=== PATIENT | male | born 1995 | race African-American/Black ===

== ENCOUNTER 2018-04-15 19:41 | Observation (INO) | payer OTHER ==
[~2018-04-15 19:41] MED LIST: SUCCINYLCHOLINE CHLORIDE INJ 200 MG/10 ML VIAL ONE
--- NOTE | 2018-04-15 20:06 | ER Document Report ---
ED General - General Stated Complaint: INGESTION OF FORIEGN OBJECT Time Seen by Provider: 04/15/18 19:45 Mode of Arrival: Medic Information source: Patient, Law Enforcement Notes: 22-year-old male who is in police custody presents by police concern of ingestion of bag of heroin. Patient himself initially denies the bag, he notes he feels well. Please did note that he was found to have ingested large bag of heroin. TRAVEL OUTSIDE OF THE [place] IN LAST 30 DAYS: No - HPI Onset: Just prior to arrival Onset/Duration: Sudden Quality of pain: No pain Severity: Mild Pain Level: Denies Associated symptoms: None Exacerbated by: Denies Relieved by: Denies Similar symptoms previously: No Recently seen / treated by doctor: No - Related Data Allergies/Adverse Reactions: No Known Allergies Allergy (Verified 04/15/18 20:29) Past Medical History - Social History Smoking Status: Current Every Day Smoker Cigarette use (# per day): Yes Chew tobacco use (# tins/day): No Smoking Education Provided: No Frequency of alcohol use: Occasional Family History: Reviewed & Not Pertinent, CVA, DM Psychiatric Medical History: Reports: Hx Attention Deficit Hyperactivity Disorder - Immunizations Immunizations up to date: Yes Hx Diphtheria, Pertussis, Tetanus Vaccination: Yes - 2013 Review of Systems - Review of Systems Notes: REVIEW OF SYSTEMS: CONSTITUTIONAL : Denies fever, chills, or sweats. Denies recent illness. EENT: Denies eye, ear, throat, or mouth pain or symptoms. Denies nasal or sinus congestion or discharge. Denies throat, tongue, or mouth swelling or difficulty swallowing. CARDIOVASCULAR: Denies chest pain. Denies palpitations or racing or irregular heart beat. Denies ankle edema. RESPIRATORY: Denies cough, cold, or chest congestion. Denies shortness of breath, difficulty breathing, or wheezing. GASTROINTESTINAL: Denies abdominal pain or distention. Denies nausea, vomiting , or diarrhea. Denies blood in vomitus, stools, or per rectum. Denies black, tarry stools. Denies constipation. GENITOURINARY: Denies difficulty urinating, painful urination, burning, frequency, blood in urine, or discharge. MUSCULOSKELETAL: Denies back or neck pain or stiffness. Denies joint pain or swelling. SKIN: Denies rash, lesions or sores. HEMATOLOGIC : Denies easy bruising or bleeding. LYMPHATIC: Denies swollen, enlarged glands. NEUROLOGICAL: Denies confusion or altered mental status. Denies passing out or loss of consciousness. Denies dizziness or lightheadedness. Denies headache. Denies weakness or paralysis or loss of use of either side. Denies problems with gait or speech. Denies sensory loss, numbness, or tingling. Denies seizures. PSYCHIATRIC: Denies anxiety or stress. Denies depression, suicidal ideation, or homicidal ideation. ALL OTHER SYSTEMS REVIEWED AND NEGATIVE. Dictation was performed using [employer] voice recognition software PHYSICAL EXAMINATION: GENERAL: Well-appearing, well-nourished and in no acute distress. HEAD: Atraumatic, normocephalic. EYES: Pupils equal round and reactive to light, extraocular movements intact, sclera anicteric, conjunctiva are normal. ENT: Nares patent, oropharynx clear without exudates. Moist mucous membranes. NECK: Normal range of motion, supple without lymphadenopathy LUNGS: Breath sounds clear to auscultation bilaterally and equal. No wheezes rales or rhonchi. HEART: Regular rate and rhythm without murmurs ABDOMEN: Soft, nontender, nondistended abdomen. No guarding, no rebound. No masses appreciated. Musculoskeletal: Normal range of motion, no pitting or edema. No cyanosis. NEUROLOGICAL: Cranial nerves grossly intact. Normal speech, normal gait. Normal sensory, motor exams PSYCH: Normal mood, normal affect. SKIN: Warm, Dry, normal turgor, no rashes or lesions noted. Physical Exam - Vital signs Vitals: BP 143/88 H 04/15/18 20:02 Course - Re-evaluation Re-evalutation: 04/15/18 20:38 Initially patient refused to admit that he had ingested the bag of heroin, however after performing x-ray and CT for his own safety as a rupture of this bag could lead to sudden I did notice a foreign body in his stomach, when I explained this to the patient he admitted that he did swallow it and he is agreeable to surgical intervention Patient was immediately evaluated by surgeon who will take the patient to have an egd performed in the operating room - Vital Signs Vital signs: Temp Pulse Resp BP Pulse Ox 98 F 85 11 L 137/74 H 98 04/15/18 20:06 04/15/18 20:06 04/15/18 20:33 04/15/18 20:33 04/15/18 20:33 Discharge - Discharge Clinical Impression: heroin ingestion Condition: Stable Disposition: SAME DAY SURGERY Admitting Provider: Surgicalist Unit Admitted: OR
--- NOTE | 2018-04-15 20:12 | RADIOLOGY REPORT (SQ) ---
EXAM DESCRIPTION: KUB/ABDOMEN (SINGLE VIEW) COMPLETED DATE/TIME: 04/15/2018 7:59 pm REASON FOR STUDY: heroin bag ingestion COMPARISON: None. NUMBER OF VIEWS: One view. TECHNIQUE: Supine radiographic image of the abdomen acquired. LIMITATIONS: None. FINDINGS: BOWEL GAS PATTERN: Normal bowel gas pattern. No dilated loops. CALCIFICATIONS: No suspicious calcifications. SOFT TISSUES: No gross mass or suggestion of organomegaly. HARDWARE: None in the abdomen. BONES: No acute fracture. No worrisome bone lesions. OTHER: No other significant finding. IMPRESSION: No evidence of retained foreign body; however, the ingested material may not be radiopaq ue. TECHNICAL DOCUMENTATION: JOB ID: [id number] [employer]- All Rights Reserved Reading location - IP/workstation name: [email or web address]
--- NOTE | 2018-04-15 20:19 | RADIOLOGY REPORT (SQ) ---
EXAM DESCRIPTION: CT ABD/PELVIS NO ORAL OR IV COMPLETED DATE/TIME: 04/15/2018 8:02 pm REASON FOR STUDY: HEROIN BAG INGESTION COMPARISON: None. TECHNIQUE: CT scan of the abdomen and pelvis performed without intravenous or oral contrast. Images reviewed with lung, soft tissue, and bone windows. Reconstructed coronal and sagittal MPR images revi ewed. All images stored on PACS. All CT scanners at this facility use dose modulation, iterative reconstruction, and/or weight based d osing when appropriate to reduce radiation dose to as low as reasonably achievable (ALARA). [facility]: Dose Right [facility]: CareDose [facility]: Dose Right [facility]: Teradose 4D [facility]: [employer] RADIATION DOSE: CT Rad equipment meets quality standard of care and radiation dose reduction techniq ues were employed. CTDIvol: 7.8 mGy. DLP: 419 mGy-cm.mGy. LIMITATIONS: None. FINDINGS: LOWER CHEST: No significant findings. No nodules or infiltrates. NON-CONTRASTED LIVER, SPLEEN, ADRENALS: Evaluation limited by lack of IV contrast. No identified sign ificant masses. PANCREAS: No masses. No peripancreatic inflammatory changes. GALLBLADDER: No identified stones by CT criteria. No inflammatory changes to suggest cholecystitis. RIGHT KIDNEY AND URETER: No suspicious masses. Assessment limited by lack of IV contrast. No signif icant calcifications. No hydronephrosis or hydroureter. LEFT KIDNEY AND URETER: No suspicious masses. Assessment limited by lack of IV contrast. No signifi cant calcifications. No hydronephrosis or hydroureter. AORTA AND RETROPERITONEUM: No aneurysm. No retroperitoneal masses or adenopathy. BOWEL AND PERITONEAL CAVITY: There is an a 2.3 x 1.9 x 2.2 cm structure with an the gastric contents which has the appearance of an ingested foreign body. No obvious masses or inflammatory changes. No free fluid. APPENDIX: Normal. PELVIS, BLADDER, AND ABDOMINAL WALL:No abnormal masses. No free fluid. Bladder normal. BONES: No significant findings. OTHER: No other significant finding. IMPRESSION: Given clinical history, a 2.3 x 1.9 x 2.2 cm structure seen within the gastric contents likely represents the suspected foreign body ingestion. COMMENT: This report was called to MOHSEN MCKINNEY DO at20:10 on 04/15/2018. Quality ID # [id number]: Final reports with documentation of one or more dose reduction techniques (e.g., Au tomated exposure control, adjustment of the mA and/or kV according to patient size, use of iterative reconstruction technique) TECHNICAL DOCUMENTATION: JOB ID: [id number] [employer]- All Rights Reserved Reading location - IP/workstation name: [email or web address]
[2018-04-15] MEDS ORDERED: MIDAZOLAM 2 MG/2 ML INJ ONE (20:26)
[2018-04-15] MEDS ORDERED: FENTANYL CITRATE INJ/PF 100 MCG/2 ML AMPUL ONE (20:26)
[2018-04-15] MEDS ORDERED: PROPOFOL INJ 200 MG/20 ML VIAL IV ONE (20:26)
[2018-04-15] MEDS ORDERED: LIDOCAINE 2% INJ-PF (20 MG/ML) 10 ML AMPUL ONE (20:26)
[2018-04-15] MEDS ORDERED: DEXMEDETOMIDINE INJ 80 MCG/20 ML VIAL IV ONE (20:28)
[2018-04-15] MEDS ORDERED: NALOXONE HCL INJ/PF 0.4 MG/1 ML SDV ONE (20:34)
[2018-04-15 20:43] LABS: ABSOLUTE LYMPHOCYTES (AUTO) 1.1 10^3/uL (0.5-4.7); ABSOLUTE MONOCYTES (AUTO) 0.4 10^3/uL (0.1-1.4); ABSOLUTE NEUT (AUTO) 6.2 10^3/uL (1.7-8.2); BASOPHILS % (AUTO) 0.3 % (0-2); EOSINOPHILS % (AUTO) 0.2 % (0-6); HEMATOCRIT 45.8 % (37.9-51.0); HEMOGLOBIN 15.8 g/dL (13.5-17.0); LYMPHOCYTES % (AUTO) 14.4 % (13-45); MEAN CORPUSCULAR HEMOGLOBIN 32.7 pg (27.0-33.4); MEAN CORPUSCULAR HGB CONC 34.6 g/dL (32.0-36.0); MEAN CORPUSCULAR VOLUME 95 fl (80-97); MONOCYTES % (AUTO) 5.4 % (3-13); PLATELET COUNT 233 10^3/uL (150-450); RED BLOOD COUNT 4.85 10^6/uL (4.35-5.55); RED CELL DISTRIBUTION WIDTH 13.7 % (11.5-14.0); SEGMENTED NEUTROPHILS % (AUTO) 79.7 % (42-78); TOTAL CELLS COUNTED % (AUTO) 100 %; WHITE BLOOD COUNT 7.8 10^3/uL (4.0-10.5)
--- NOTE | 2018-04-15 20:43 | PDOC H&P ---
History of Present Illness Admission Date/PCP: 04/15/18 20:23 Patient complains of: Ingestion of foreign body History of Present Illness: MARIBEL ALVAREZ is a 22 year old male Was brought to the emergency department by [facility]'s office after having ingested a bag of heroin. The history is provided by the [place] [employer] on a video at the snf. The patient was then taken into custody and subsequently brought to the emergency department. The related to Dr. Gutierres who subsequently took an x-ray of the patient's abdomen which was nondiagnostic. A CT of the abdomen was performed without oral or IV contrast which showed findings consistent with foreign body. This was confirmed by the radiologist. When confronted, the patient did not deny swallowing the alleged bag of heroin. he remained cooperative, in handcuffs. Surgery was consulted and arrangements were made for the patient to be taken to the operating room for upper endoscopy, possible exploratory laparotomy for removal of foreign body in the stomach. Past Medical History Medical History: None Psychiatric Medical History: Reports: Attention Deficit Hyperactivity Disorder Past Surgical History Past Surgical History: Reports: None Social History Smoking Status: Current Every Day Smoker Hx Recreational Drug Use: Yes Hx Prescription Drug Abuse: No Family History Family History: None, Reviewed & Not Pertinent, CVA, DM Parental Family History Reviewed: Yes Children Family History Reviewed: Yes Sibling(s) Family History Reviewed.: Yes Medication/Allergy Home Medications: No Home Medications 04/15/18 Allergies/Adverse Reactions: No Known Allergies Allergy (Verified 04/15/18 20:29) Review of Systems Constitutional: ABSENT: chills, fever(s), headache(s), weight gain, weight loss Eyes: ABSENT: visual disturbances Ears: ABSENT: hearing changes Cardiovascular: ABSENT: chest pain, dyspnea on exertion, edema, orthropnea, palpitations Respiratory: ABSENT: cough, hemoptysis Gastrointestinal: ABSENT: abdominal pain, constipation, diarrhea, hematemesis, hematochezia, nausea, vomiting Genitourinary: ABSENT: dysuria, hematuria Musculoskeletal: ABSENT: joint swelling Integumentary: ABSENT: rash, wounds Neurological: ABSENT: abnormal gait, abnormal speech, confusion, dizziness, focal weakness, syncope Psychiatric: ABSENT: anxiety, depression, homidical ideation, suicidal ideation Endocrine: ABSENT: cold intolerance, heat intolerance, polydipsia, polyuria Hematologic/Lymphatic: ABSENT: easy bleeding, easy bruising Physical Exam Vital Signs: Temp Pulse Resp BP Pulse Ox 98 F 85 28 H 142/88 H 98 04/15/18 20:06 04/15/18 20:06 04/15/18 20:20 04/15/18 20:20 04/15/18 20:20 General appearance: PRESENT: mild distress Head exam: PRESENT: normocephalic Eye exam: PRESENT: EOMI Ear exam: PRESENT: normal external ear exam Teeth exam: PRESENT: other - Goal plating Neck exam: PRESENT: full ROM Respiratory exam: PRESENT: clear to auscultation jerry Cardiovascular exam: PRESENT: RRR Pulses: PRESENT: normal carotid pulses, normal radial pulses GI/Abdominal exam: PRESENT: soft Rectal exam: PRESENT: deferred Extremities exam: PRESENT: other - Patient confined due to handcuffs and ankle cuffs Neurological exam: PRESENT: alert, awake, oriented to person, oriented to place , oriented to time, oriented to situation, other - Patient remained cooperative throughout the exam Psychiatric exam: PRESENT: anxious Skin exam: PRESENT: dry Results Impressions: Abdomen/Pelvis CT 04/15/18 00:00 IMPRESSION: Given clinical history, a 2.3 x 1.9 x 2.2 cm structure seen within the gastric contents likely represents the suspected foreign body ingestion. KUB X-Ray 04/15/18 19:47 IMPRESSION: No evidence of retained foreign body; however, the ingested material may not be radiopaque. Assessment & Plan - Diagnosis (1) Ingestion of foreign body Qualifiers: Encounter type: initial encounter Qualified Code(s): T18.9XXA - Foreign body of alimentary tract, part unspecified, initial encounter Is this a current diagnosis for this admission?: Yes Plan: History of present illness, and imaging studies consistent with ingested foreign body consistent with bag of heroin by report. Patient is hemodynamically stable neurologically intact and has been presented with the putative evidence that foreign bodies present in the stomach. Recommendations: 1. Because of the legal, and health implications of this self inflicted behavior, we have recommended the patient undergo upper endoscopy possible laparotomy, gastrotomy for removal of foreign body. This is been explained to the patient. He appears to understand the consequences of not operating which include disability and possibly due to release of heroin, and agrees to proceed with recommended procedure. - Time Time Spent: 50 to 70 Minutes Critical Time spent with patient: 15-24 minutes Medications reviewed and adjusted accordingly: Yes Anticipated discharge: Other - Halfway - Inpatient Certification Based on my medical assessment, after consideration of the patient's comorbidities, presenting symptoms, or acuity I expect that the services needed warrant INPATIENT care.: Yes I certify that my determination is in accordance with my understanding of Medicare's requirements for reasonable and necessary INPATIENT services [42 CFR 412.3e].: Yes Medical Necessity: Need For IV Fluids
[2018-04-15 21:03] LABS: ALANINE AMINOTRANSFERASE 39 U/L (21-72); ALBUMIN 4.8 g/dL (3.5-5.0); ALKALINE PHOSPHATASE 76 U/L (38-126); ANION GAP 15 (5-19); ASPARTATE AMINO TRANSFERASE 33 U/L (17-59); BILIRUBIN,DIRECT 0.3 mg/dL (0.0-0.4); BILIRUBIN,TOTAL 0.6 mg/dL (0.2-1.3); BLOOD UREA NITROGEN 10 mg/dL (7-20); CALCIUM 9.9 mg/dL (8.4-10.2); CARBON DIOXIDE 21 mmol/L (22-30); CHLORIDE 108 mmol/L (98-107); GLUCOSE 109 mg/dL (75-110); POTASSIUM 3.8 mmol/L (3.6-5.0); SODIUM 143.7 mmol/L (137-145); TOTAL PROTEIN 7.8 g/dL (6.3-8.2)
[2018-04-15 21:25] LABS: URINE AMPHETAMINES SCREEN NEGATIVE; URINE BARBITURATES SCREEN NEGATIVE; URINE BENZODIAZEPINES SCREEN NEGATIVE; URINE COCAINE SCREEN NEGATIVE; URINE MARIJUANA (THC) SCREEN UNCONFIRMED POSITIVE; URINE METHADONE SCREEN NEGATIVE; URINE PHENCYCLIDINE SCREEN NEGATIVE
--- NOTE | 2018-04-15 22:20 | Operative Report ---
Operative Report DATE OF SURGERY: 04/15/18 PREOPERATIVE DIAGNOSIS: Ingestion of foreign body consistent with bag of heroin POSTOPERATIVE DIAGNOSIS: Name with gastritis and duodenitis OPERATION: 1. Esophagogastroduodenoscopy. 2. Extraction of bag of heroin away from stomach SURGEON: MARIBEL VERGARA ANESTHESIA: GA TISSUE REMOVED OR ALTERED: None COMPLICATIONS: None ESTIMATED BLOOD LOSS: None INTRAOPERATIVE FINDINGS: See below PROCEDURE: After obtaining informed consent, patient taken the main operating room where general anesthesia was induced by endotracheal intubation he was placed in supine position; instrumentation was set up for upper endoscopy. Surgical plan surgical timeout were conducted. The flexible adult upper endoscope was advanced through the hypopharynx, down the esophagus into the stomach. There was a moderate amount of white undigested food consistent with rice. Photos were taken. Scope was advanced through the pylorus into the duodenum. There is mild to moderate duodenitis. There was some undigested white food substance in the duodenum. Scope was brought back through into the stomach. There is mild gastritis. In the cardia the stomach there was a large collection of white undigested food. Amongst this was the bag of heroin. We placed the patient in the extreme right lateral decubitus position left side up. Using a combination of irrigation and gentle massage with the scope, we are able to free the bag up from the food materials. We now used a Byers net to secure the bag containing the heroin. The scope, Byers net and bag was brought out of the patient using a gentle pull. A mechanical laryngoscope was used to open the hypopharynx, and the scope , Byers net and bag were all brought out intact for the patient's oropharynx. The intact plastic bag with the heroin contents therein was placed in the specimen cup, and given to the appropriate authorities in the operating room. We repeated the upper endoscopy and check for any mechanical bleeding there was none. We also re-scope the patient from stomach down through the first and second portion of the duodenum to ensure there were no other foreign bodies and there were none. Other than some undigested food. Scope was withdrawn. The patient was then extubated and tolerated procedure well taken recovery room with shackles remaining on his feet.
[2018-04-16 08:19] VITALS: BP 114/67
--- NOTE | 2018-04-16 09:20 | PDOC DISCHARGE SUMMARY ---
General - Admit/Disc Date/PCP Admission Date/Primary Care Provider: 04/15/18 20:23 Discharge Date: 04/16/18 - Discharge Diagnosis (1) Ingestion of foreign body Is this a current diagnosis for this admission?: Yes - Additional Information Resuscitation Status: Full Code Discharge Diet: As Tolerated Discharge Activity: Activity As Tolerated Home Medications: No Home Medications 04/15/18 History of Present Illness History of Present Illness: MARIBEL ALVAREZ is a 22 year old male who ingested a foreign body at the nursing home facility. The patient was brought to the hospital for extraction of the ingested foreign body. Hospital Course Hospital Course: The patient was taken to the operating room where EGD with foreign body extraction was performed. The surgery was successful. The patient was taken to the floor in stable condition. On postoperative day #1 the patient was doing well, his vital signs were stable, and he was tolerating a diet. At this time it was felt that the patient had reached maximal hospital benefit and was fit for discharge. Physical Exam Vital Signs: Temp Pulse Resp BP Pulse Ox 98.5 F 76 15 114/67 99 04/16/18 08:00 04/16/18 08:00 04/16/18 08:00 04/16/18 08:00 04/16/18 08:00 Intake & Output 04/15/18 04/16/18 04/17/18 06:59 06:59 06:59 Intake Total 1999 Balance 1999 Results Laboratory Results: 04/15/18 21:02 Blood Type A NEGATIVE Antibody Screen NEGATIVE Impressions: Abdomen/Pelvis CT 04/15/18 00:00 IMPRESSION: Given clinical history, a 2.3 x 1.9 x 2.2 cm structure seen within the gastric contents likely represents the suspected foreign body ingestion. KUB X-Ray 04/15/18 19:47 IMPRESSION: No evidence of retained foreign body; however, the ingested material may not be radiopaque. Qualifiers - * PATIENT BEING DISCHARGED WITH ANY OF THE FOLLOWING DIAGNOSIS: No Plan Time Spent: Less than 30 Minutes
== END 2018-04-16 10:15 ==
LOC: ER 19:41 → EH 20:23 → INTOOBSV 20:23 → 4S 23:00
PROVIDERS: ATTEND Surgery
PROC: 0DC68ZZ Extirpation of Matter from Stomach, Via Natural or Artificial Opening Endoscopic (ICD-10-PCS; principal; 2018-04-15 21:30)
DX: T18.2XXA Foreign body in stomach, initial encounter (principal); K29.70 Gastritis, unspecified, without bleeding; K29.80 Duodenitis without bleeding; F17.210 Nicotine dependence, cigarettes, uncomplicated
CPT/HCPCS: 99285; 43247; 86900; 86901; 36415; 86850; 85025; 80053; 80307; 74018; 74176; G0378; J2250; J3010; J0330; J2704; J3490; 731; J2310